=== PATIENT | female | born 1930 | race Caucasian/White ===

== ENCOUNTER → 2020-02-19 | Outpatient (CLI) | payer MEDICARE ==
[~2020-02-19] MED LIST: ACET1TAB55 PO; ALLE180T33 PO; DIGO0.123 PO; METO25TA4 PO; WARF-20 PO
--- NOTE | 2020-02-23 08:47 | DEXA ---
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 FOLLOW-UP: Recommendation for the next bone density exam: 2 years. DILIA
== END ==
LOC: M WHC 10:30
PROVIDERS: ATTEND Orthopaedic Surgery Sports Medicine
DX: S22.000A Wedge compression fracture of unspecified thoracic vertebra, initial encounter for closed fracture (principal); W18.30XA Fall on same level, unspecified, initial encounter; Y92.9 Unspecified place or not applicable